=== PATIENT | male | born 1935 | race Caucasian/White ===

== ENCOUNTER 2018-07-01 01:38 | Inpatient (IN) | payer OTHER ==
[2018-07-01] VITALS (63 sets, daily range): BP systolic 90–139; BP diastolic 45–82
[~2018-07-01] VITALS: Ht 172.7 cm; Wt 74.5 kg
[~2018-07-01 01:38] MED LIST: ACETAMINOPHEN-1 EAC1; ACETAMINOPHEN-1 EAC1 PO; ADVAIR 250-501 EACH INH; ALENDRONATE SOD70 MG PO; ATIVAN0.5 MG PO; CARBIDOPA-LEVO1 EA11 PER TUBE; CARDIZEM CD120 MG PO; CELEXA20 MG PER TUBE; FLOMAX0.4 MG PER TUBE; HYDRALAZINE 2525 MG; IBUPROFEN 400400 M2 PO; LIDODERM 5%1 PATCH TRANSDERM; OMEPRAZOLE20 M2 PER TUBE; VITAMIN B-12500 MCG; XARELTO20 MG PO
[2018-07-01 02:21] LABS: URINE BILIRUBIN NEGATIVE (Negative); URINE BLOOD 3+ (Negative); URINE CLARITY SL CLOUDY; URINE COLOR YELLOW; URINE GLUCOSE-RANDOM* NEGATIVE (Negative); URINE KETONES NEGATIVE (Negative); URINE PROTEIN (DIPSTICK) NEGATIVE (Negative); URINE UROBILINOGEN 0.2 E.U./dl (0.2-1.0)
[2018-07-01 02:24] LABS: URINE LEUKOCYTES-REFLEX 3+ (Negative); URINE NITRITE-REFLEX POSITIVE (Negative)
[2018-07-01 02:25] LABS: HEMOGLOBIN 11.9 gm/dL (14.0-18.0); MCH 23.2 pg (26.0-34.0); MCHC 32.2 g/dL (28.0-37.0); MCV 72.1 fL (80.0-100.0); PLATELET COUNT 314 thou/uL (150-400); RBC 5.12 mil/uL (4.50-6.00); RDW 19.8 % (10.5-14.5); WBC 26.9 thou/uL (4.0-11.0)
[2018-07-01 02:28] LABS: SQUAMOUS 0-3 Few /LPF (0-3); URINE WBC-REFLEX >25 Many /HPF (0-5); WBC CLUMPS Moderate (None Seen)
[2018-07-01 02:29] LABS: BACTERIA-REFLEX >30 Many /HPF (None Seen); CASTS None Seen /LPF (None Seen); CRYSTALS None Seen /LPF (None Seen); MUCUS 0-3 Light strn/LPF (None Seen); URINE RBC >20 Many /HPF (0-2)
[2018-07-01 02:30] LABS: ANION GAP 11 mmol/L (7-16); BUN 21 mg/dL (7-18); CALCIUM 8.8 mg/dL (8.5-10.1); CHLORIDE 95 mmol/L (98-107); CO2 26 mmol/L (21-32); CREATININE 1.4 mg/dL (0.7-1.3); GLUCOSE 129 mg/dL (74-106); POTASSIUM 3.3 mmol/L (3.5-5.1); SODIUM 132 mmol/L (136-145)
[2018-07-01 02:39] LABS: ALBUMIN 1.9 g/dL (3.4-5.0); SGOT 17 U/L (15-37); SGPT < 6 U/L (30-65); TOTAL BILIRUBIN 0.6 mg/dL (<0.1-1.0); TROPONIN-I <0.06 ng/mL (<0.06)
[2018-07-01 03:08] LABS: ABSOLUTE NEUTROPHILS 24.5 thou/uL (1.4-8.2)
[2018-07-01 03:09] LABS: ANISOCYTOSIS 2+
[2018-07-01 03:10] LABS: HYPOCHROMASIA 1+; MICROCYTES 1+; PLATELET ESTIMATE NORMAL; POLYCHROMASIA 1+
[2018-07-01 06:27] LABS: APTT 39.1 Seconds (24.5-32.8); FIBRINOGEN 514.9 mg/dL (210-360); INR 1.3; PROTIME 13.5 Seconds (9.3-11.4)
--- NOTE | 2018-07-01 07:46 | NUR ---
PT ARRIVED ON THE UNIT FROM ER AT 0605 , ON LEVOPHED AT 12MCG, PT AWAKE, TRACKING NURSING STAFF IN THE ROOM , BUT NON VERBAL. 02 AT 3L, ATTACHED PT ON THE MONITOR AND STARTED VANCOMYCIN, CALLED PULMONARY AND NOTIFIED ON CONSULT. REPORT GIVEN TO ONCOMING RN.
[2018-07-01 08:03] LABS: CALCIUM 7.2 mg/dL (8.5-10.1); CREATININE 1.3 mg/dL (0.7-1.3); POTASSIUM 3.5 mmol/L (3.5-5.1)
[2018-07-01 08:08] LABS: INR 1.5; PROTIME 15.2 Seconds (9.3-11.4)
[2018-07-01 08:15] LABS: BE(vivo) -3.4 mmol/L (-2 to +3); PCO2 35.5 mmHg (35.0-45.0); PO2 88.6 mmHg (80.0-100.0); sO2 96.8 % (92.0-98.0)
--- NOTE | 2018-07-01 08:33 | EKG ---
[address] [address] ELECTROCARDIOGRAM REPORT Name: CHRISTIAN COPPOLAFELIPE Room #: 245-P ADM IN M.R.#: [id number] ������������������ Admission: 07/01/18 ������������������ Attend Phys: Jam Wright MD Discharge: ������������������ Date of : 31 Report #: [id number] ����������������������������������������������������������������� [id number] THIS REPORT FOR: //name// [facility] ED Test Date: 2018-07-01 Test Time: 02:11:21 Pat Name: CHRISTIAN COPPOLA Department: Room: [facility] Gender: M Health Type Technician: LINH : 1935 Requested By: Tiera Mahmood Order Number: [id number] MD: Joe Perdomo Measurements Intervals [place] Rate: 89 P: 37 [place]: 194 QRS: -35 QRSD: 146 T: 4 QT: 369 QTc: 449 Interpretive Statements Sinus rhythm Right bundle branch block Baseline wander in lead(s) V1 Compared to ECG 05/23/2016 19:28:01 Electronically Signed On 07-01-2018 8:33:00 CDT by Joe Perdomo [email or web address] ��������������������������������������������� <ELECTRONICALLY SIGNED> ���������������������������������������� By: Joe Perdomo MD ��������������������������������������������� 07/01/18 0833 0 0 Joe Perdomo MD /EPI
--- NOTE | 2018-07-01 09:58 | NUR ---
VASCULAR ACCESS ROUNDING, PT ADM TO ICU, UNSUCCESSFUL IJ ATTEMPTED BY MD THEN TL PLACED IN R FEMORAL, PT HAS MULTIPLE MEDS, CENTRAL LINE IS APPROPRIATE.
[2018-07-01] MEDS ORDERED: TESSALON PERLE100 M1 PO (12:20)
[2018-07-01] MEDS ORDERED: TYLENOL325 MG PER TUBE (12:20)
[2018-07-01] MEDS ORDERED: LAXATIVE FEMININ5 MG PER TUBE (12:22)
[2018-07-01] MEDS ORDERED: PROSCAR 5MG TABL5 MG PER TUBE (12:23)
[2018-07-01] MEDS ORDERED: NORCO 5-325 TA1 EACH PER TUBE (12:23)
[2018-07-01] MEDS ORDERED: CALCIUM 600 +1 EAC1 PO (12:23)
[2018-07-01] MEDS ORDERED: IPRAT-ALBUT 0.5-3 ML INH (12:31)
[2018-07-01] MEDS ORDERED: LEVALBUTER1.25 MG/0. INH (12:32)
[2018-07-01] MEDS ORDERED: LOPRESSOR25 PER TUBE (12:32)
[2018-07-01] MEDS ORDERED: MIRALAX17 GM PER TUBE (12:33)
[2018-07-01] MEDS ORDERED: PREDNISONE 5 MG5 M1 PO (12:33)
[2018-07-01] MEDS ORDERED: LASIX 20 MG TAB20 MG PER TUBE (12:35)
--- NOTE | 2018-07-01 14:28 | NUR ---
CM ASSESSMENT: CASE OPENED FOR DC PLANNING. CLINICAL INFO REVIEWED. PT ADMITS FROM LTC AT [facility] WITH SEPSIS. HX OF PARKINSON'S AND DEMENTIA. SPEAKS FARSI ONLY. SPOKE WITH PT'S DTR PADILLA BY PHONE. DTR INDICATES PT AT BASELINE SPEAKS VERY LITTLE EVEN TO FAMILY. PT AND SPOUSE WERE LIVING WITH FAMILY, PT HOSPITALIZED AT [facility], AND THEN TRANSITIONED TO [facility] 05/09/18 WITH INTENTION FOR LTC. PT IS DNR. PADILLA INDICATES PLAN TO RETURN TO [facility] LTC WHEN MEDICALLY STABLE. UPDATED CLINICAL TO [facility] FROM [facility].
--- NOTE | 2018-07-01 16:54 | NUR ---
Patient resting quietly and calmly in bed. Vital signs as documented. Patients daughter was updated upon her arrival today. IV fluids infusing. Oral care performed. Plan of care is to continue orders as per physician, monitor vital signs q15 minutes, oral care q2 hours, turn q2 hours, and perform assessments q2-4 hours. Patient not responding verbally even to assiniboine and sioux language or to his daughter. He will open eyes and track. No verbal response noted. Nurse to continue to monitor patient status.
[2018-07-02] VITALS (30 sets, daily range): BP systolic 100–154; BP diastolic 57–88
--- NOTE | 2018-07-02 04:11 | NUR ---
PT RHYHTM CHANGE LOOKS AFIB RATE 100-120S. PT BP STABLE. PT RR CONTINUES TO FLUCTUATE FROM 15-LOW 40S. CALL PLACED TO ARI ORTIZ AND ORDER FOR EKG OBTAINED. FIRST EKG READING SAID ST BUT PT TREMORS D/T PARKINSONS. TOOK EKG READING AGAIN AND GOT AFIB, TOOK A THIRD TIME AND AFIB CONFIRMED. CALL PLACED TO ARI ORTIZ TO REPORT FINDING AND OBTAINED ORDERS.
[2018-07-02 04:37] LABS: ABSOLUTE NEUTROPHILS 15.2 thou/uL (1.4-8.2); HEMATOCRIT 29.9 % (42.0-52.0); HEMOGLOBIN 9.5 gm/dL (14.0-18.0); LYMPHOCYTES 1.8 % (24.0-44.0); MCH 22.9 pg (26.0-34.0); MCHC 31.6 g/dL (28.0-37.0); MCV 72.4 fL (80.0-100.0); MONOCYTES 2.5 % (1.0-8.0); PLATELET COUNT 247 thou/uL (150-400); POLYS 95.7 % (36.0-66.0); RBC 4.13 mil/uL (4.50-6.00); RDW 19.7 % (10.5-14.5); WBC 15.9 thou/uL (4.0-11.0)
[2018-07-02 04:44] LABS: CALCIUM 7.2 mg/dL (8.5-10.1)
[2018-07-02 05:11] LABS: POTASSIUM 2.7 mmol/L (3.5-5.1)
--- NOTE | 2018-07-02 06:23 | NUR ---
PT RESTING COMFORTABLE IN BED. PT AFEBRILE. PT BEGINNING SHIFT RHYTHM SA/BBB THEN DURING SHIFT AFTER ABOUT 0330 INTO AFIB WITH EKG TO CONFIRM BOLUS OF CARDIZEM GIVEN. PT CONTINUES WITH MAINTENANCE IVF AND ABX TREATMENT. PT GETTING POTASSIUM REPLACEMENT. PT BEGINNING SHIFT ASSESSMENT LETHARGIC WITHOUT MUCH VERBAL COMMUNICATION BUT SHIFT WENT ON, PT SAID, "THANK YOU VERY MUCH," TO ME WHEN I RECOVERED HIM AFTER A BATH. PT SEEMS MORE AWAKE/ALERT BUT UNABLE TO EXPRESS NEEDS. WITH CALL SON IN LAW AND UPDATE.
--- NOTE | 2018-07-02 08:51 | EKG ---
[address] [address] ELECTROCARDIOGRAM REPORT Name: ABDONCHRISTIAN Room #: 245- ADM IN M.R.#: [id number] ������������������ Admission: 07/01/18 ������������������ Attend Phys: Yris Peralta MD Discharge: ������������������ Date of : 31 Report #: [id number] ����������������������������������������������������������������� [id number] THIS REPORT FOR: //name// [facility] Test Date: 2018-07-02 Test Time: 04:04:15 Pat Name: CHRISTIAN COPPOLA Department: Room: 245 P Gender: M Television Director: samm : 1935 Requested By: Ewa Farrell Order Number: [id number] MD: Joe Perdomo Measurements Intervals [place] Rate: 102 P: [place]: QRS: 154 QRSD: 154 T: -7 QT: 382 QTc: 498 Interpretive Statements Atrial fibrillation Ventricular premature complex RBBB and LPFB Compared to ECG 07/01/2018 02:11:21 Electronically Signed On 07-02-2018 8:50:47 CDT by Joe ePrdomo [email or web address] ��������������������������������������������� <ELECTRONICALLY SIGNED> ���������������������������������������� By: Joe Perdomo MD ��������������������������������������������� 07/02/18 0850 0404 Joe Perdomo MD /DELMER
[2018-07-02 11:57] LABS: POTASSIUM 2.7 mmol/L (3.5-5.1)
--- NOTE | 2018-07-02 12:01 | HC ---
[facility] [place] [address] CONSULTATION Name: CHRISTIAN COPPOLA Room #: 245-P ADM IN M.R.#: [id number] Admission: 07/01/18 ������������������ Attend Phys: Yris Peralta MD Discharge: ������������������ Date of : 33 Report #: [id number] THIS REPORT FOR: //name// CC: Emiliano Peralta DATE OF SERVICE: 07/01/2018 INFECTIOUS DISEASES CONSULTATION REASON FOR CONSULTATION: I was asked to evaluate concerning septic shock. HISTORY OF PRESENT ILLNESS: The patient is an 82-year-old [place] immigrant with underlying history of pulmonary fibrosis, Parkinson's disease, depression, who was recently hospitalized at [facility] with a diagnosis of pneumonia. Post-discharge care was at [facility]. I am unclear of the duration of this extended stay visit. He presents to the Emergency Room last evening with acute shortness of breath associated with fever. He at baseline is on 3 liters of oxygen per nasal cannula. On presentation, his blood pressure dropped into the 70s systolic. He has been given up to 3 liters of IV fluid, started on vasopressors, placed an indwelling Solano catheter with thick purulent urine return. His chest x-ray had revealed basilar atelectasis, infiltrates. The patient was unable to speak any Samoan. He would not respond verbally to questioning even with airline mechanic on the phone. He has had no rashes or decubiti. He has had a previous PE, but there has been no hemoptysis or reported chest pain. No nausea, vomiting or diarrhea. REVIEW OF SYSTEMS: A 10-point review of systems was negative other than what is described above. ALLERGIES: None. MEDICATIONS: As noted on his MAR including vancomycin, Zosyn, Levaquin, hydrocortisone and Levophed drip. PAST MEDICAL HISTORY: Hypertension, pulmonary embolism, Parkinson's disease, pneumonia, pulmonary fibrosis, gastroesophageal reflux, BPH, depression, compression fracture of T12, status post vertebroplasty 2 years ago; right clavicular and rib fractures. FAMILY HISTORY: Noncontributory. SOCIAL HISTORY: Non-Samoan speaker. No tobacco or alcohol use. No reported HIV risks. PHYSICAL EXAMINATION: [facility] [address] [place] [address] CONSULTATION Name: CHRISTIAN COPPOLA [facility] Room #: [address] [place] [address] [place] [facility].#: [id number] Admission: 07/01/18 ������������������ Attend Phys: Yris Peralta MD Discharge: ������������������ Date of : 33 Report #: [id number] VITAL SIGNS: Temperature is 97.2, heart rate 63, respiratory rate 20 on 3 liters of oxygen per nasal cannula, blood pressure 128/73 on Levophed drip. SKIN: Without rash or decubitus. LYMPH: Without palpable adenopathy. HEENT: Eyes without scleral icterus. Mouth without mucositis. NECK: Supple. No thyromegaly or mass. LUNGS: Basilar crackles about prison up. No consolidation. No rub. HEART: Regular, without murmur, gallop or rub. ABDOMEN: Soft, nontender, no hepatosplenomegaly or mass. GENITOURINARY: External genitalia unremarkable with no lesions with indwelling Solano catheter. RECTAL: Not performed. EXTREMITIES: Without cyanosis, clubbing or edema. Cranial nerves appeared intact. He would not cooperate with examination. Increased muscle tone throughout. LABORATORY STUDIES: Chest x-ray, pulmonary fibrosis with basilar atelectasis, infiltrate. Procalcitonin 17.8. Lactate 1.5. ABGs on 3 liters pO2 of 88, pCO2 of 35, pH 7.39. Sodium 135, potassium 3.5, bicarbonate 24, creatinine 1.3, alkaline phosphatase 139, AST 17, bilirubin 0.6. BNP 2423. Hemoglobin 11.9, platelet count 314,000, white count 26.9 with 16% bands. Urinalysis with pyuria, hematuria and bacteriuria. Blood and urine cultures are pending. IMPRESSION: An 82-year-old penitentiary resident with, 1. Septic shock, suspect urinary tract versus aspiration type healthcare-associated pneumonia. 2. Underlying Parkinson's disease and depression. 3. Underlying pulmonary fibrosis, oxygen requiring, and pulmonary emboli. 4. Unable to communicate, unclear if due to sepsis and delirium or language barrier. 5. The patient is critically ill with increased mortality risk. RECOMMENDATION: We will continue with sepsis protocol. I have discussed with nursing staff and critical care physician at the bedside. He will be treated with broad antibiotic coverage for healthcare-associated organisms. We will await initial culture results, then decide on next step in his treatment program. We will obtain CT scan of his abdomen to ensure no upper tract urinary disease process. ��������������������������������������������� <ELECTRONICALLY SIGNED> ���������������������������������������� By: Jesús Jacobs MD ��������������������������������������������� 07/02/18 1201 0842 1905 Jesús Jacobs MD /nt
[2018-07-02 12:22] LABS: CALCIUM 7.3 mg/dL (8.5-10.1); CREATININE 0.9 mg/dL (0.7-1.3); MAGNESIUM 1.9 mg/dL (1.8-2.4)
--- NOTE | 2018-07-02 16:25 | 2DMMODE ---
[facility] [address] [place] [address] 2 D/M-MODE ECHOCARDIOGRAM Name: CHRISTIAN COPPOLA [facility] Room #: 245-P ADM IN M.R.#: [id number] ������������� Admission: 07/01/18 ������������� Attend Phys: Yris Peralta Discharge: ��� ������������� ��� Date of : 31 Date of Service: 07/02/18 1625 �� Report #: [id number] �������� ��������������������������������������������[id number] THIS REPORT FOR: //name// APPROVED REPORT Study performed: 07/02/2018 15:05:37 EXAM: Comprehensive 2D, Doppler, and color-flow Echocardiogram Patient Location: ICU Room #: [facility] Status: routine BSA: 1.83 HR: 110 bpm BP: 131/69 mmHg Rhythm: Atrial Fibrillation Other Information Study Quality: Adequate Indications Atrial Fibrillation Left Ventricle The left ventricle is normal size. There is normal LV segmental wall motion. There is normal left ventricular wall thickness. The left ventricular systolic function is normal. The left ventricular ejection fraction is within the normal range. LVEF is 60-65%. Right Ventricle The right ventricle is normal size. The right ventricular systolic function is normal. Atria The left atrium size is normal. The right atrium size is normal. Aortic Valve The aortic valve is normal in structure. Mitral Valve The mitral valve is normal in structure. Tricuspid Valve The tricuspid valve is normal in structure. [facility] [address] [facility] [place] [address] 2 D/M-MODE ECHOCARDIOGRAM [facility]: [facility] #: 245-P ADM IN M.R.#: [id number] ������������� Admission: 07/01/18 ������������� Attend Phys: Yris Peralta Discharge: ��� ������������� ��� Date of : 31 Date of Service: 07/02/18 1625 �� Report #: [id number] �������� ��������������������������������������������[id number] Pulmonic Valve The pulmonary valve is normal in structure. Great Vessels The aortic root is normal in size. IVC is normal in size and collapses >50% with inspiration. Pericardium There is no pericardial effusion. <Conclusion> LVEF is 60-65%. There is normal LV segmental wall motion. The aortic valve is normal in structure. The mitral valve is normal in structure. There is no pericardial effusion. ��������������������������������������������� <ELECTRONICALLY SIGNED> ���������������������������������������� By: Arian Hernandez MD, FACC ��������������������������������������������� 07/02/18 1625 1625 24 Arian Hernandez MD, FACC /INF
--- NOTE | 2018-07-02 16:29 | NUR ---
FAXED CLINICAL UPDATE TO [facility] SPOKE WITH [facility] IN ADM. SHE RECEIVED UPDATE. DCP TO FOLLOW.
--- NOTE | 2018-07-02 17:13 | NUR ---
PT IS AWAKE AND FAMILY AT BEDSIDE TODAY AND VISITED WITH PT TODAY. COMPLAINED OF CHEST PAIN AND NITRO X2. O2 AT 3LITERS NASAL CANULA. DILAUDID GIVEN FOR CHEST DISCOMFORT RATES A 6-7 ON THE PAIN SCALE. AFTER MEDS GIVEN CHEST PAIN RESOLVED. AND PT RESTING COMFORTALBE. LUNGS ARE COARSE TO DIMINISHED. A FIB ON THE LOADING AND UNLOADING SUPERVISOR . NICHOLSON TO DD WITH CLEAR YELLOW URINE PRESENT. SCDS ON BILATERAL. IV TEAM PLACED LEFT IJ TRIPPLE LUMEN TODAY. CTA DONE TODAY FOR DIAGNOSTIC TESTING. WILL CONTINUE TO ASSESS AND MONITOR PER NURSING.
--- NOTE | 2018-07-02 19:09 | NUR ---
VASCULAR ACCESS CALLED TO PLACE A CL TO HAVE THE FEMORAL REMOVED. A 5FRTLPICC PLACED IN LT IJ WITH NO DIFFICULTIES. PLEASE SEE INSERTION NOTE FOR DETAILS
[2018-07-03] VITALS (22 sets, daily range): BP systolic 86–153; BP diastolic 57–96
[2018-07-03 05:31] LABS: ABSOLUTE NEUTROPHILS 8.3 thou/uL (1.4-8.2); EOSINOPHILS 0.1 % (0.0-3.0); HEMATOCRIT 30.7 % (42.0-52.0); HEMOGLOBIN 9.8 gm/dL (14.0-18.0); LYMPHOCYTES 3.4 % (24.0-44.0); MCH 23.1 pg (26.0-34.0); MCHC 31.9 g/dL (28.0-37.0); MCV 72.4 fL (80.0-100.0); MONOCYTES 3.9 % (1.0-8.0); PLATELET COUNT 273 thou/uL (150-400); POLYS 92.6 % (36.0-66.0); RBC 4.24 mil/uL (4.50-6.00); RDW 19.9 % (10.5-14.5)
[2018-07-03 05:39] LABS: CALCIUM 7.2 mg/dL (8.5-10.1); CREATININE 0.7 mg/dL (0.7-1.3)
[2018-07-03 05:45] LABS: POTASSIUM 2.7 mmol/L (3.5-5.1)
--- NOTE | 2018-07-03 07:19 | NUR ---
ASSUMED PT CARE AT 1900 WITH NO SIGN OF DISTRESS NOTED IN PT. PT IS ALERT BUT DROWSY. NO SIGN OF DISTRESS NOTED IN PT. NO FAMILY AT BEDSIDE. SCHEDULED MED ADMINISTERED TO FIDELIA, NURSING POC FOLLOWED. VITAL SIGNS STABLE. PT IS STABLE, DENIES ANY FURTHER NEEDS AT THIS TIME
--- NOTE | 2018-07-03 08:20 | EKG ---
[address] [address] ELECTROCARDIOGRAM REPORT Name: CHRISTIAN COPPOLA [facility] Room #: 245- ADM IN M.R.#: [id number] ������������������ Admission: 07/01/18 ������������������ Attend Phys: Yris Peralta MD Discharge: ������������������ Date of : 31 Report #: [id number] ����������������������������������������������������������������� [id number] THIS REPORT FOR: //name// [facility] Test Date: 2018-07-02 Test Time: 11:17:02 Pat Name: CHRISTIAN COPPOLA Department: Room: 245 Gender: M Sales Market Leader: BS : 1935 Requested By: Sebastián Medley Order Number: [id number] MD: Joe Perdomo Measurements Intervals [place] Rate: 115 P: [place]: QRS: 71 QRSD: 142 T: 10 QT: 377 QTc: 522 Interpretive Statements Atrial fibrillation Right bundle branch block Compared to ECG 07/02/2018 04:04:15 Electronically Signed On 07-03-2018 8:20:02 CDT by Joe Perdomo [email or web address] ��������������������������������������������� <ELECTRONICALLY SIGNED> ���������������������������������������� By: Joe Perdomo MD ��������������������������������������������� 07/03/18 0820 1117 1117 Joe Perdomo MD /DELMER
--- NOTE | 2018-07-03 09:50 | 2DMMODE ---
[facility] [address] [place] [address] 2 D/M-MODE ECHOCARDIOGRAM Name: CHRISTIAN COPPOLA [facility] Room #: 245-P ADM IN M.R.#: [id number] ������������� Admission: 07/01/18 ������������� Attend Phys: Yris Peralta Discharge: ��� ������������� ��� Date of : 31 Date of Service: 07/03/18 0950 �� Report #: [id number] �������� ��������������������������������������������[id number] THIS REPORT FOR: //name// APPROVED REPORT Study performed: 07/03/2018 08:16:39 EXAM: Comprehensive 2D, Doppler, and color-flow Echocardiogram Patient Location: ICU Room #: [facility] Status: routine BSA: 1.83 HR: 95 bpm BP: 128/78 mmHg Rhythm: Atrial Fibrillation Other Information Study Quality: Technically Difficult Technically limited study due to lung disease, inability to position patient, patient unable to cooperate, patient does not speak azeri. Indications COPD Atrial Fibrillation Chest Pain Hypertension/HDD Hx PE 2D Dimensions RVDd: 31.46 mm IVSd: 10.75 (7-11mm) LVOT Diam: 19.50 (18-24mm) LVDd: 36.65 mm PWd: 9.77 (7-11mm) Ascending Ao: 33.93 (22-36mm) LVDs: 30.43 (25-40mm) Aortic Root: 33.95 mm IVC: 22.00 mm Volumes Left Atrial Volume (Systole) Single Plane 4CH: 39.43 mL Single Plane 2CH: 35.27 mL LA ESV Index: 21.00 mL/m2 Aortic Valve AoV Peak Boris.: 0.96 m/s AO Peak Gr.: 3.68 mmHg LVOT Max P.48 mmHg [facility] [address] [place] [address] 2 D/M-MODE ECHOCARDIOGRAM [facility]: [facility] Room #: [address] [place] [address] [place] [facility].#: [id number] ������������� Admission: 07/01/18 ������������� Attend Phys: Yris Peralta Discharge: ��� ������������� ��� Date of : 31 Date of Service: 07/03/18 0950 �� Report #: [id number] �������� ��������������������������������������������[id number] LVOT Max V: 0.79 m/s CALE Vmax: 2.44 cm2 Mitral Valve MV Decel. Time: 151.00 ms MV E Max Boris.: 1.31 m/s IVRT: 96.89 ms Pulmonary Valve PV Peak Boris.: 0.82 m/s PV Peak Gr.: 2.69 mmHg Tricuspid Valve TR Peak Boris.: 3.08 m/s RAP Estimate: 15.00 mmHg TR Peak Gr.: 35.28 mmHg PA Pressure: 50.00 mmHg Left Ventricle The left ventricle is normal size. There is normal LV segmental wall motion. There is normal left ventricular wall thickness. The left ventricular systolic function is normal. The left ventricular ejection fraction is within the normal range. LVEF is 55-60%. This study is not technically sufficient to allow evaluation of the LV diastolic function due to atrial fibrillation. Right Ventricle The right ventricle is normal size. Right ventricle is mildly hypokinetic. Atria The left atrium size is normal. The right atrium size is normal. Aortic Valve The aortic valve is mildly sclerotic Mild aortic regurgitation. There is no aortic valvular stenosis. Mitral Valve The mitral valve is normal in structure. Mild mitral regurgitation. No evidence of mitral valve stenosis. Tricuspid Valve The tricuspid valve is normal in structure. Mild to moderate tricuspid regurgitation. PAP is estimated at 45-50 mmHg. Pulmonic Valve The pulmonary valve is normal in structure. There is no pulmonic [facility] [address] [place] [address] 2 D/M-MODE ECHOCARDIOGRAM Name: CHRISTIAN COPPOLA [facility] Room #: 245-P [facility] IN .R.#: [id number] ������������� Admission: 07/01/18 ������������� Attend Phys: Yris Peralta Discharge: ��� ������������� ��� Date of : 31 Date of Service: 07/03/18 0950 �� Report #: [id number] �������� ��������������������������������������������[id number] valvular regurgitation. Great Vessels The aortic root is normal in size. IVC is mildly dilated and collapses <50% with inspiration. Pericardium There is no pericardial effusion. <Conclusion> The left ventricular systolic function is normal. There is normal LV segmental wall motion. LVEF is 55-60%. The aortic valve is mildly sclerotic. Mild aortic regurgitation, no stenosis. The mitral valve is normal in structure. Mild mitral regurgitation. Mild to moderate tricuspid regurgitation. Pulmonary artery pressure estimated at 45-50 mmHg. There is no pericardial effusion. ��������������������������������������������� <ELECTRONICALLY SIGNED> ���������������������������������������� By: Arian Hernandez MD, [facility] ��������������������������������������������� 07/03/1850 9 9 Arian Hernandez MD, FAC /INF
[2018-07-03 12:33] LABS: MAGNESIUM 2.4 mg/dL (1.8-2.4); POTASSIUM 3.1 mmol/L (3.5-5.1)
--- NOTE | 2018-07-03 15:30 | NUR ---
PT IS ALERT AND LUNGS ARE DIMINISHED. ON 3 LITERS NASAL CANULA. AFIB ON THE LAMINA SEARCHER. ON A PURE DIET TOLERATING FAIR. PT IN HIGH FOWLERS POSITION WITH FEEDING NEEDS ASSISTANCE. NICHOLSON TO DD WITH YELLOW URINE. COMPLAINS OF SOME CHEST PAIN AND BACK PAIN. MEDS GIVEN AND PAIN RESOLVED. SPEAKS LITHUANIAN LANUGUAGE. PT RESTING WITH NO PAIN NOTED. WILL CONTINUE TO MONITOR AND ASSESS PER NURSING
--- NOTE | 2018-07-03 18:38 | NUR ---
PT TRANSFERED TO ROOM 203 WITH ALL BELONGINGS AND REPORT GIVEN TO RN TO ASSUME CARE JOSEPH.
--- NOTE | 2018-07-03 19:16 | NUR ---
PT ARRIVED TO UNIT APPROX 1840. PT DOES NOT OPEN EYES OR MAKE ATTEMPT TO COMMUNICATE WITH NURSE THAT SPEAKS TAJIK. DOES NOT APPEAR TO BE IN ANY DISTRESS OR PAIN. NS, K+ AND VANCO INFUSIONS RESTARTED.
[2018-07-04] VITALS: BP 131/72
[2018-07-04 04:38] VITALS: BP 137/83
--- NOTE | 2018-07-04 05:44 | NUR ---
PATIENT TRANSFER FROM ICU. NO MEASURE OR ORIENTATION PT DOES NOT OPEN EYES WHEN FIRST CAME ON UNIT. PT ON IV FLUIDS AND ABX, NO FEVER. REFUSED ORAL CARDIZEM. PT SUSTAINING HR > 120. IV METOPROLOL GIVEN X 2. PT FOLLOWS NO COMMANDS. APPEARS TO BE NOT IN DISTRESS. WILL CONTINUE TO MONITOR.
[2018-07-04 08:00] VITALS: BP 154/91
[2018-07-04 11:15] VITALS: BP 143/96
--- NOTE | 2018-07-04 13:26 | NUR ---
Pt Status - spoke with daughter Delaney about pt's dementia and she states that is has worsened over the last month. Pt speaks Farsi, unable to communicate w/o shutdown coordinator. Pt's HR remains aprox 140's and reduced with Lopressor IV. Spoke with cardiology and will resume pt's home dose of Dilt 120 starting tonight. Was able to give 60 Dilt po with pureed potato. Per Card will give Dig today also. will monitor.
--- NOTE | 2018-07-04 15:48 | NUR ---
FAXED CLINICAL UPDATE TO [facility] SPOKE WITH [facility] AND SHE RECEIVED UPDATE AND THEY DO NOT HAVE A OUTSIDE DNR OR DPOA PAPERS ON FILE. IF PT TO DISCHARGE OVER WEEKEND FAX DC ORDERS TO [phone] AND CALL REPORT TO [phone]. TO SET UP TRANSPORTATION CALL [employer] .
[2018-07-04 16:00] VITALS: BP 169/98
--- NOTE | 2018-07-04 16:55 | NUR ---
jeri yeboah'd at 12 today, pt with urine out at 1645, aprox 200. will monitor.
[2018-07-04 18:10] LABS: ADENOVIRUS Negative (Negative); INFLUENZA A Negative (Negative); INFLUENZA B Negative (Negative); METAPNEUMOVIRUS Negative (Negative); PARAINFLUENZA 1 Negative (Negative); PARAINFLUENZA 2 Negative (Negative); PARAINFLUENZA 3 Negative (Negative); RHINOVIRUS Negative (Negative); RSV A Negative (Negative); RSV B Negative (Negative)
[2018-07-04 19:27] VITALS: BP 148/99
[2018-07-05 04:32] VITALS: BP 143/67
--- NOTE | 2018-07-05 05:18 | NUR ---
ASSESSMENT DOCUMENTED. 23:20>UNABLE TO UNDERSTAND WHAT THE PATIENT IS SAYING. CALLED NUMERICAL CONTROL NESTING OPERATOR WITH ID# [id number]. HE SAID HE WANTS SOME WATER AND WAS ASKING FOR HER FAMILY. TURNING AND ORAL CARE DONE. BED BATH DONE. MAINTAINED ON FALL PRECAUTION AND ISOLATION PRECAUTION. FF UP POC.
[2018-07-05 06:27] LABS: CALCIUM 7.8 mg/dL (8.5-10.1); CREATININE 0.8 mg/dL (0.7-1.3)
[2018-07-05 06:29] LABS: POTASSIUM 2.5 mmol/L (3.5-5.1)
[2018-07-05 11:51] VITALS: BP 117/68
--- NOTE | 2018-07-05 15:02 | NUR ---
NON SLOVENIAN SPEAKING. SPEAKS KINYARWANDA, NOT TAMAZIGHT. FAMILY VISITS, INCLUDING ONE WHO IS AN MD. CASE DISCUSSED AT LENGTH WITH HIM. REMAINS INCONTINENT OF URINE, IN CONTACT ISOLATION. AFIB PER TELE. FALL PRECAUTIONS IN PLACE. FREQUENT CHECKS; WILL CONTINUE TO MONITOR.
[2018-07-05 17:25] VITALS: BP 122/69
--- NOTE | 2018-07-05 17:54 | NUR ---
INCONTINENT OF URINE. BLADDER SCAN REVEALED 294ML, ABD SOFT. ORDER TO CHECK RESIDUAL QSHIFT REVIEWED: INSERT INDWELLING CATHETER IF RESIDUAL >400ML.
[2018-07-05 19:26] VITALS: BP 134/80
[2018-07-05 20:31] LABS: MAGNESIUM 2.6 mg/dL (1.8-2.4)
[2018-07-05 20:35] LABS: POTASSIUM 2.9 mmol/L (3.5-5.1)
[2018-07-06 03:57] VITALS: BP 122/75
--- NOTE | 2018-07-06 04:29 | NUR ---
assessment as documented. not kyrgyz but uzbek speaking as per report given to me during shift change. patient moaning and gremacing, PRN PAIN MEDS given. turning every 2 hours done, oral care done but patient would resist oral care. maintained on isolation precaution. still incontinent with urine. SMEARS smears of BM noted. maintained on fall precaution. ff up POC.
[2018-07-06 05:16] LABS: URINE BILIRUBIN NEGATIVE (Negative); URINE BLOOD 1+ (Negative); URINE CLARITY CLEAR; URINE COLOR YELLOW; URINE GLUCOSE-RANDOM* NEGATIVE (Negative); URINE KETONES NEGATIVE (Negative); URINE LEUKOCYTES-REFLEX NEGATIVE (Negative); URINE NITRITE-REFLEX NEGATIVE (Negative); URINE PROTEIN (DIPSTICK) NEGATIVE (Negative); URINE UROBILINOGEN 0.2 E.U./dl (0.2-1.0)
[2018-07-06 05:30] LABS: BACTERIA-REFLEX 1-9 Few /HPF (None Seen); CASTS None Seen /LPF (None Seen); MUCUS 0-3 Light strn/LPF (None Seen); SQUAMOUS 0-3 Few /LPF (0-3); URINE RBC 3-10 Few /HPF (0-2); URINE WBC-REFLEX 0-5 Rare /HPF (0-5)
[2018-07-06 05:31] LABS: CRYSTALS None Seen /LPF (None Seen); YEAST-REFLEX Present (None Seen)
[2018-07-06 06:42] LABS: HEMATOCRIT 36.4 % (42.0-52.0); HEMOGLOBIN 11.6 gm/dL (14.0-18.0); MCH 22.9 pg (26.0-34.0); MCHC 31.8 g/dL (28.0-37.0); RBC 5.06 mil/uL (4.50-6.00); RDW 19.6 % (10.5-14.5); WBC 13.2 thou/uL (4.0-11.0)
[2018-07-06 06:50] LABS: CALCIUM 8.3 mg/dL (8.5-10.1); CREATININE 0.8 mg/dL (0.7-1.3); MAGNESIUM 2.2 mg/dL (1.8-2.4); POTASSIUM 3.3 mmol/L (3.5-5.1)
[2018-07-06 07:29] VITALS: BP 129/79
[2018-07-06 16:30] VITALS: BP 113/71
--- NOTE | 2018-07-06 18:21 | NUR ---
ASSUMED CARE AT 0700, HARD TO COMMUNICATE WITH PATIENT, NO SIGNS OF DISTRESS OR ANXIETY. VSS. BEGAN MOANING AT 0730 AND DILAUDID 0.5MG IV GIVEN WITH GOOD RESULTS. BLADDER SCAN DONE AND 345ML NOTED. CONDOM CATH PLACED TO KEEP SKIN INTACT AND 375 VOIDED WITH ONE INCONTINENCE. K+ 3.3, [address] ALBRECHT WOULD LIKE TO SPEAK TO FAMILY AND ASKED THAT WE CONTACT HIM IF THEY CAME TODAY BUT THEY DID NOT.
[2018-07-06 19:20] VITALS: BP 169/83
--- NOTE | 2018-07-07 03:50 | NUR ---
ASSUMED CARE 1900. VSS. ASSESSMENT CHARTED. DIRECTOR UNDERWRITER SALES PHONE SERVICE USED FOR FARSI- PT NONVERBAL TO DIRECTOR UNDERWRITER SALES. PT WILL NODE YES/NO TO FOOD/DRINK OFFERED-SPITS OUT PILLS, TAKES TIME. FACES PAIN SCALE USED, PT GRIMACES AND MOANS WHEN MOVED. PRN PAIN MED PER EMAR. EX URINARY CATH IN PLACE DRAINING WELL- BLADDER SCANNED 368 ML, PT DRAINS BETTER WHEN REPOSITIONED. Q2 TUJRNS SCDS IN PLACE. PLAN FOR LABS WITH AM WILL CONTINUE TO MONITOR AND WITH POC.
[2018-07-07 04:01] LABS: CALCIUM 7.9 mg/dL (8.5-10.1); CREATININE 0.6 mg/dL (0.7-1.3); MAGNESIUM 2.1 mg/dL (1.8-2.4); POTASSIUM 3.3 mmol/L (3.5-5.1)
[2018-07-07 04:07] LABS: HEMATOCRIT 36.1 % (42.0-52.0); HEMOGLOBIN 11.4 gm/dL (14.0-18.0); MCH 23.2 pg (26.0-34.0); MCHC 31.6 g/dL (28.0-37.0); MCV 73.4 fL (80.0-100.0); RBC 4.92 mil/uL (4.50-6.00); RDW 20.1 % (10.5-14.5); WBC 10.1 thou/uL (4.0-11.0)
[2018-07-07 05:19] VITALS: BP 148/67
[2018-07-07 07:58] VITALS: BP 120/73
[2018-07-07 10:27] LABS: % SATURATION 13 % (20-39); IRON 22 ug/dL (65-175); TIBC 163 ug/dL (250-450)
[2018-07-07 12:15] VITALS: BP 128/75
--- NOTE | 2018-07-07 13:46 | NUR ---
plan peg tube for this week. plan to update [facility].
[2018-07-07 15:31] VITALS: BP 114/57
--- NOTE | 2018-07-07 17:19 | NUR ---
PT CARE ASSUMED APPROX 0700. PT NON[place] CITIZ[place] SPEAKING AND FAMILY REPORTED TO THIS NURSE THAT EVEN WHEN PT SPEAKS TO THEM THAT IT'S VERY MINIMAL AND THAT HE IS SOMEWHAT CONFUSED. ALERT AND COOPERATIVE WITH MEALS AND HELPING TO TURN. APPEARED TO BE IN INTERMITTENT PAIN THIS AM. MEDICATED WITH HYDROCODONE AND HYDROMORPHONE. PT HAS BEEN ASLEEP BUT EASILY AROUSABLE SINCE. VSS. TURNING PT Q2HRS AND PRN. GI ON THE CASE FOR PEG PLACEMENT. IVF STOPPED. PARENTAL NUTRITION ADDED TO POC. CT OF L AND T SPINE COMPLETED. DAUGHTER AT BEDSIDE EARLIER THIS SHIFT AND RECEIVED CLINICAL UPDATE FROM DR ALBRECHT AND SPOKE TO GI TEAM. VERBAL PHONE CONSENT OBTAINED FROM DAUGHTER WITH SECOND RN. NO DISTRESS NOTED THIS SHIFT.
--- NOTE | 2018-07-07 18:06 | NUR ---
URINARY CATH PLACED THIS AM WITHOUT ISSUE.
[2018-07-07 19:46] VITALS: BP 145/71
--- NOTE | 2018-07-08 03:09 | NUR ---
ASSUMED CARE 1899. VSS. ASSESSMENT CHARTED. ONLY SPEAKS FARSI, NODES YES/NO WITH GESTURES. PT REFUSED MEDS, FOOD, FLUIDS THIS SHIFT, SPIT MEDICATIONS OUT SHAKES HEAD NO WHEN OFFERED ANYTHING. PRN IV PAIN MEDS PER EMAR, PT MOANS FACIAL GRIMACES. Q2 TURNS, PT WILL HELP WITH TURNS APPEARS NO DISTRESS, WILL ALLOW TURNS. URINARY NICHOLSON IN PLACE DRAINING WELL. PPN PER EMAR. NPO AT MIDNIGHT. PLAN FOR EGD WITH PEG TODAY. WILL CONTINUE TO MONITOR AND WITH POC.
[2018-07-08 04:50] LABS: HEMATOCRIT 34.3 % (42.0-52.0); HEMOGLOBIN 10.9 gm/dL (14.0-18.0); MCH 23.3 pg (26.0-34.0); MCHC 31.7 g/dL (28.0-37.0); MCV 73.6 fL (80.0-100.0); RBC 4.66 mil/uL (4.50-6.00); WBC 9.4 thou/uL (4.0-11.0)
[2018-07-08 05:06] LABS: CALCIUM 7.7 mg/dL (8.5-10.1); CREATININE 0.6 mg/dL (0.7-1.3); POTASSIUM 3.2 mmol/L (3.5-5.1)
[2018-07-08 05:14] VITALS: BP 128/71
[2018-07-08 08:31] VITALS: BP 131/76
[2018-07-08 12:06] VITALS: BP 121/78
--- NOTE | 2018-07-08 12:30 | NUR ---
Recommend d/c ppn once tube feeding is initiated. Recommend tube feeding of Jevity 1.5 at goal rate of 55 mL/hr with 225 mL water flushes Q6hr. Begin at 20 mL/hr and advance slowly until goal rate is reached due to high refeeding risk. Monitor and replace electrolytes per protocol.
[2018-07-08 15:25] VITALS: BP 114/68
--- NOTE | 2018-07-08 17:00 | EKG ---
[address] [address] ELECTROCARDIOGRAM REPORT Name: CHRISTIAN COPPOLAIDBea Room #: 203-P ADM IN M.R.#: [id number] ������������������ Admission: 07/01/18 ������������������ Attend Phys: Yris Peralta MD Discharge: ������������������ Date of : 31 Report #: [id number] ����������������������������������������������������������������� [id number] THIS REPORT FOR: //name// [facility] Test Date: 2018-07-08 Test Time: 10:26:46 Pat Name: CHRISTIAN COPPOLA Department: Room: 203 P Gender: M [employer] Setter: MICHAEL : 1935 Requested By: Sujey Huang Order Number: [id number] MD: Arian Hernandez Measurements Intervals [place] Rate: 119 P: AR: QRS: -19 QRSD: 144 T: -14 QT: 368 QTc: 518 Interpretive Statements Atrial fibrillation Right bundle branch block Artifact in lead(s) I,III,aVR,aVL,aVF Compared to ECG 07/02/2018 11:17:02 No significant changes Electronically Signed On 07-08-2018 17:00:47 CDT by Arian Hernandez [email or web address] ��������������������������������������������� <ELECTRONICALLY SIGNED> ���������������������������������������� By: Arian Hernandez MD, FACC ��������������������������������������������� 07/08/18 1700 1026 1026 Arian Hernandez MD, [facility] /EPI
--- NOTE | 2018-07-08 18:33 | NUR ---
ASSUMED CARE THIS AM. VSS, NO SIGNS OF PAIN AT THIS TIME. NPO SINCE MN. TOO GI AT 0830 FOR PEG TUBE PLACEMENT. PLACEMENT COMPLETE OF 20 EGYPTIAN GASTROSTOMY TUBE. OKAY TO USE FOR MEDS AND WATER TODAY, WILL BEGIN TUBE FEEDS ON 07/09/18 WHEN CLEARED BY GI. PPN RUNNING AT 80ML/HR. DILAUDID 0.5 MG IV GIVEN FOR PAIN WITH GOOD RESULTS.
[2018-07-08 20:38] VITALS: BP 123/87
[2018-07-08 23:39] VITALS: BP 111/68
--- NOTE | 2018-07-09 04:01 | NUR ---
VSS. ASSESSMENT CHARTED. PRN IV PAIN MEDS PER EMAR- PT NON VERBAL FARSI SPEAKING HOLDS STOMACH GRIMACES. PEG TUBE IN PLACE, DRESSING CDI, NO RESIDULE, MEDS GIVEN PER TUBE PT TOLERATING WELL. PPN PER EMAR. ISO MAINTAINED. Q2 TURNS. PT OFFERED REFUSED FOOD/FLUIDS PO. REFUSED MOUTH SWAB. WILL CONTINUE TO MONITOR AND WITH POC.
[2018-07-09 04:20] LABS: CALCIUM 8.2 mg/dL (8.5-10.1); CREATININE 0.7 mg/dL (0.7-1.3); POTASSIUM 3.5 mmol/L (3.5-5.1)
[2018-07-09 04:28] LABS: HEMOGLOBIN 12.5 gm/dL (14.0-18.0); MCHC 31.3 g/dL (28.0-37.0); MCV 73.4 fL (80.0-100.0); RBC 5.45 mil/uL (4.50-6.00); RDW 20.4 % (10.5-14.5); WBC 12.1 thou/uL (4.0-11.0)
[2018-07-09 05:37] VITALS: BP 130/79
[2018-07-09 07:54] VITALS: BP 124/71
--- NOTE | 2018-07-09 10:38 | NUR ---
ASSUMED CARE AT 0700, SHIFT ASSESSMENT DONE, VSS, MEDS GIVEN. TUBE FEEDING SITE C/D/I. ORDER RECEIVED TO START TUBE FEEDING, STARTED AT 1020 AT 20 MLS/HR WITH A GOAL RATE OF 55 MLS/HR. TURNS PERFORMED Q2H. HOB AT 30 DEGREES, FALL PRECAUTIONS IN PLACE. WILL CONTINUE TO MONITOR TUBE FEEDING AND INTERVENE NEEDED.
--- NOTE | 2018-07-09 13:18 | NUR ---
PATIENT TO DC TODAY IF TOLERATING TUBE FEEDINGS. DTR AT BEDSIDE REPORTS THEY DO NOT WANT TO RETURN TO [facility] INTERESTED IN NEW FACILITY. REVIEWED WITH DTR PATIENT STABLE FOR DC CAN MAKE REFERRALS AND HAVE SW AT FACILITY CONT WITH ALT PLACEMENT. DISCUSSED MEDICAID LTC BED SOMETIMES NOT AVAIL. DTR AGREEABLE TO PLAN
--- NOTE | 2018-07-09 13:41 | NUR ---
FAXED GI PROG. NOTES TO [facility] LEFT MSG WITH [facility] THAT UPDATE SENT. DCP TO FOLLOW.
[2018-07-09] MEDS ORDERED: CEFDINIR300 MG PER TUBE (14:46)
[2018-07-09] MEDS ORDERED: CARDIZEM30 MG PER TUBE (14:46)
[2018-07-09] MEDS ORDERED: PREDNISONE 20 M20 MG PO (14:46)
[2018-07-09] MEDS ORDERED: IPRAT-ALBUT 0.5-3 ML INH (14:46)
[2018-07-09 15:00] VITALS: BP 91/45
--- NOTE | 2018-07-09 16:08 | NUR ---
PT. DISCHARGING TODAY TO [facility] FAXED DC ORDERS/SUMMARY TO FACILITY SPOKE BEATRICE [facility] IN ADM. SHE RECEIVED DC ORDERS AND SET UP TRANSPORT FOR 1730 TODAY. FAMILY NOTIFIED BY SW. UNIT NOTIFIED AND CHART COPY PER US. RN TO CALL REPORT TO [phone].
--- NOTE | 2018-07-09 17:07 | NUR ---
DISCHARGE ORDERS RECEIVED. PREIPHERAL IV WAS TAKEN OUT. FOELY WAS LEFT IN PLACE. REPORT CALLED AND GIVEN TO CHARGE NURSE DAVID. PEG TUBE DRESSING SITE CHANGED PER DIRECTION. PATIENT WAS ABLE TO TOLERATE PEG TUBE FEEDING AT A GOAL RATE OF 55 MLS/HR.
== END 2018-07-09 17:02 | DRG 871 ==
LOC: ER 01:38 → EROBS 05:15 → 2N 05:15 → ICU 05:15 → 2N 07-03 18:35
PROVIDERS: Internal Medicine; Nurse Practitioner; Nurse Practitioner Acute Care; Nurse Practitioner Family; Specialist; Student in an Organized Health Care Education/Training Program; ADMIT Internal Medicine
PROC: 02HV33Z Insertion of Infusion Device into Superior Vena Cava, Percutaneous Approach (ICD-10-PCS; principal; 2018-07-01)
PROC: 0DH63UZ Insertion of Feeding Device into Stomach, Percutaneous Approach (ICD-10-PCS; 2018-07-08)
DX: A41.02 Sepsis due to Methicillin resistant Staphylococcus aureus (principal); R65.21 Severe sepsis with septic shock; J69.0 Pneumonitis due to inhalation of food and vomit; J96.21 Acute and chronic respiratory failure with hypoxia; G93.40 Encephalopathy, unspecified; N17.9 Acute kidney failure, unspecified; E87.1 Hypo-osmolality and hyponatremia; N12 Tubulo-interstitial nephritis, not specified as acute or chronic; Z66 Do not resuscitate; J43.9 Emphysema, unspecified; N40.1 Benign prostatic hyperplasia with lower urinary tract symptoms; R33.8 Other retention of urine; N30.90 Cystitis, unspecified without hematuria; A41.51 Sepsis due to Escherichia coli [E. coli]; G20 Parkinson's disease; I10 Essential (primary) hypertension; F32.9 Major depressive disorder, single episode, unspecified; K21.9 Gastro-esophageal reflux disease without esophagitis; D64.9 Anemia, unspecified; F02.80 Dementia in other diseases classified elsewhere, unspecified severity, without behavioral disturbance, psychotic disturbance, mood disturbance, and anxiety; D50.9 Iron deficiency anemia, unspecified; I48.0 Paroxysmal atrial fibrillation; B96.20 Unspecified Escherichia coli [E. coli] as the cause of diseases classified elsewhere; E87.8 Other disorders of electrolyte and fluid balance, not elsewhere classified; M81.0 Age-related osteoporosis without current pathological fracture; J84.10 Pulmonary fibrosis, unspecified; Z91.81 History of falling; Z87.891 Personal history of nicotine dependence; Z86.711 Personal history of pulmonary embolism; Z90.49 Acquired absence of other specified parts of digestive tract; Z87.81 Personal history of (healed) traumatic fracture; Z79.01 Long term (current) use of anticoagulants; Z79.899 Other long term (current) drug therapy
CPT/HCPCS: 10078; 10081; 62110; 62900